=== PATIENT | female | born 1980 | race Caucasian/White ===

== ENCOUNTER 2018-10-26 14:32 | Emergency (ER) | payer OTHER ==
[~2018-10-26] VITALS: Ht 154.9 cm; Wt 52.2 kg
[~2018-10-26 14:32] MED LIST: BACTRIM DS 8001 TA1 PO; MOTRIN800 MG PO
[2018-10-26 14:36] VITALS: BP 153/58
== END 2018-10-26 17:10 | disposition home or self-care (01) ==
LOC: ED 14:32
DX: S60.222A Contusion of left hand, initial encounter (principal); R56.9 Unspecified convulsions; M25.532 Pain in left wrist; M25.562 Pain in left knee; W18.39XA Other fall on same level, initial encounter; Y93.K1 Activity, walking an animal; Y92.89 Other specified places as the place of occurrence of the external cause; Y99.8 Other external cause status

== ENCOUNTER 2019-05-20 11:06 | Emergency (ER) | payer SELFPAY ==
[~2019-05-20] VITALS: Ht 160 cm; Wt 49.9 kg
[2019-05-20 11:12] VITALS: BP 136/87
== END 2019-05-20 12:36 | disposition home or self-care (01) ==
LOC: ED 11:06
DX: S81.812A Laceration without foreign body, left lower leg, initial encounter (principal); W26.8XXA Contact with other sharp object(s), not elsewhere classified, initial encounter; Y93.89 Activity, other specified; Y92.89 Other specified places as the place of occurrence of the external cause; Y99.8 Other external cause status

== ENCOUNTER → 2019-06-09 | Outpatient (CLI) | payer OTHER | END | disposition home or self-care (01) | LOC: RESCLI 01:12 | DX: Z13.39 Encounter for screening examination for other mental health and behavioral disorders (principal); Z13.31 Encounter for screening for depression; Z48.02 Encounter for removal of sutures; Z87.891 Personal history of nicotine dependence ==

== ENCOUNTER 2023-04-24 21:17 | Emergency (ER) | payer OTHER ==
[~2023-04-24] VITALS: Ht 154.9 cm; Wt 54.9 kg
[2023-04-24 21:33] VITALS: BP 135/71
[2023-04-25] MEDS ORDERED: PREDNISONE20 M1 PO (00:43)
[2023-04-25] MEDS ORDERED: TIZANIDINE HCL4 MG PO (00:43)
[2023-04-25] MEDS ORDERED: NEURONTIN300 MG PO (00:44)
== END 2023-04-25 01:29 | disposition home or self-care (01) ==
LOC: ED 21:17
DX: M54.41 Lumbago with sciatica, right side (principal); M79.604 Pain in right leg

== ENCOUNTER 2024-09-27 02:11 | Emergency (ER) | payer SELFPAY ==
[~2024-09-27] VITALS: Ht 154.9 cm; Wt 55.8 kg
[~2024-09-27 02:11] MED LIST changes: +CIPRO500 MG PO; +NEURONTIN300 MG PO; +PREDNISONE20 M1 PO; +TIZANIDINE HCL4 MG PO
[2024-09-27 02:20] VITALS: BP 130/68
[2024-09-27 03:39] LABS: BASO # 0.1 10*3/uL (0.0-0.1); BASO % 0.4 % (0.0-1.0); EOS # 0.1 10*3/uL (0.0-0.4); EOS % 0.5 % (1.0-4.0); HEMATOCRIT 39.5 % (37.0-47.0); MEAN CELL VOLUME 91.2 fl (81.0-99.0); MEAN CORPUSCULAR HGB 30.9 pg (27.0-31.0); MEAN CORPUSCULAR HGB CONC 33.9 g/dl (33.0-37.0); MEAN PLATELET VOLUME 10.2 fl (9.6-12.3); MONO # 0.8 10*3/uL (0.1-1.0); MONO % 5.4 % (3.0-9.0); NEUT # 11.4 10*3/uL (2.3-7.9); NEUT % 78.2 % (47.0-73.0); PLATELET COUNT AUTOMATED 323 10*3/uL (130-400); RED BLOOD COUNT 4.33 10*6/uL (4.10-5.10); RED CELL DISTRI WIDTH 12.4 % (0-14.5); WHITE BLOOD COUNT 14.6 10*3/uL (4.8-10.8)
[2024-09-27 04:01] LABS: ALKALINE PHOSPHATASE 70 U/L (46-116); CHLORIDE 101 mmol/L (98-107); LIPASE 30 U/L (12-53); POTASSIUM 3.8 mmol/L (3.4-5.1); SGPT/ALT 15 U/L (5-49); TOTAL PROTEIN 7.1 gm/dL (6.0-8.0)
[2024-09-27 04:06] LABS: BUN < 5 mg/dl (9-23)
[2024-09-27 05:19] LABS: BILIRUBIN Negative (Negative); BLOOD 2+ (Negative); CLARITY Cloudy (Clear); COLOR Yellow (Yellow); GLUCOSE Negative (Negative); KETONE 1+ (Negative); LEUKO ESTERASE Negative (Negative); NITRITE Negative (Negative)
[2024-09-27 05:41] LABS: EPITHELIAL CELLS 41-50
[2024-09-27 05:42] LABS: BACTERIA 1+; RBC 31-40 rbc/hpf (0-2)
[2024-09-27] MEDS ORDERED: CEPHALEXIN500 M1 PO (06:44)
[2024-09-27] MEDS ORDERED: CEPHALEXIN 500 MG CAP PO ONE (06:45)
== END 2024-09-27 06:56 | disposition home or self-care (01) ==
LOC: ED 02:11
PROVIDERS: Emergency Medicine
DX: N39.0 Urinary tract infection, site not specified (principal)